=== PATIENT | female | born 1940 | race Caucasian/White ===

== ENCOUNTER 2017-10-22 08:17 | Emergency (ER) | payer MEDICARE ==
[~2017-10-22] VITALS: Ht 152.4 cm; Wt 45.0 kg
[~2017-10-22 08:17] MED LIST: ADVA500A INH; ALBUAER3 INH; ASPI-183 PO; CLOP75TA PO; DIGO0.12 PO; FURO20TA PO; ISOS10TA PO; METO25TA3 PO; NITR1SUB3 SL; OXYGENTANK NAS.CANULA; PRED20 PO; SIMV40TA PO; SPIRCAP INH; XANA1TAB2 PO; [UNRECOGNIZED DRUG - SUPPLY] NAS.CANULA
[2017-10-22 08:24] VITALS: BP 143/63; PULSE 72; RESP 22; TEMP 97.4; O2SAT 100
[2017-10-22] MEDS ORDERED: PANT40TA3 PO (08:40)
[2017-10-22] MEDS ORDERED: SODIUM CHLORIDE 0.9% FLUSH 10 ML FLUSH IVF PRN (09:00)
[2017-10-22 09:13] LABS: AUTOMATED NEUTROPHIL # 5.2 TH/MM3 (1.8-7.7); BASOPHIL # 0.1 TH/MM3 (0-0.2); BASOPHIL % 0.7 % (0.0-2.0); EOSINOPHIL # 0.4 TH/MM3 (0-0.4); HEMATOCRIT 33.2 % (35.0-46.0); HEMOGLOBIN 11.1 GM/DL (11.6-15.3); LYMPH % 24.2 % (9.0-44.0); LYMPHOCYTE # 2.1 TH/MM3 (1.0-4.8); MEAN CELL VOLUME 91.1 FL (80.0-100.0); MEAN CORPUSCULAR HEMOGLOBIN 30.5 PG (27.0-34.0); MEAN CORPUSCULAR HGB CONC 33.5 % (32.0-36.0); MEAN PLATELET VOLUME 7.1 FL (7.0-11.0); MONO % 10.4 % (0.0-8.0); MONOCYTE # 0.9 TH/MM3 (0-0.9); NEUT % 59.7 % (16.0-70.0); PLATELET COUNT 336 TH/MM3 (150-450); RED BLOOD COUNT 3.64 MIL/MM3 (4.00-5.30); RED CELL DISTRIBUTION WIDTH 12.9 % (11.6-17.2); WHITE BLOOD COUNT 8.6 TH/MM3 (4.0-11.0)
[2017-10-22 09:21] LABS: INTERNATIONAL NORMALIZED RATIO 1.1 RATIO
--- NOTE | 2017-10-22 09:25 | RADRPT ---
EXAM DATE/TIME: 10/22/2017 08:57 [facility] COMPARISON: No previous studies available for comparison. INDICATIONS : Chest pain. MEDICAL HISTORY : Chronic obstructive pulmonary disease. SURGICAL HISTORY : Hysterectomy. ENCOUNTER: Initial ACUITY: 1 day PAIN SCORE: 7/10 LOCATION: Bilateral chest FINDINGS: Lungs are hyperexpanded. Linear parenchymal opacities in the right lung apex peripherally. Cardio med iastinal contours are within normal limits. Bony thorax is intact. CONCLUSION: 1. Changes suggestive of obstructive pulmonary disease. 2. Linear parenchymal opacities in the right lung apex may reflect scarring. Lan Hanna MD on October 22, 2017 at 9:20 Board Certified Radiologist. This report was verified electronically.
[2017-10-22 09:27] LABS: ALT (GPT) 14 U/L (10-53)
[2017-10-22 09:31] LABS: ALKALINE PHOSPHATASE 78 U/L (45-117); TOTAL BILIRUBIN ADULT 0.4 MG/DL (0.2-1.0); TOTAL PROTEIN 7.1 GM/DL (6.4-8.2); TROPONIN I LESS THAN 0.02 NG/ML (0.02-0.05)
[2017-10-22 09:42] LABS: AST (GOT) 24 U/L (15-37); BICARBONATE 32.6 MEQ/L (21.0-32.0); BLOOD UREA NITROGEN 16 MG/DL (7-18); CALCIUM 8.3 MG/DL (8.5-10.1); CHLORIDE 103 MEQ/L (98-107); CREATININE 0.92 MG/DL (0.50-1.00); GLOMERULAR FILTRATION RATE 59 ML/MIN (>89); GLUCOSE,RANDOM 90 MG/DL (74-106); MAGNESIUM 2.3 MG/DL (1.5-2.5); SODIUM (NA) 142 MEQ/L (136-145)
[2017-10-22] MEDS ORDERED: IOHEXOL 350 MG/ML 10 ML VIAL (for RAD DIAG) IVCONTRAST ONE (11:37)
--- NOTE | 2017-10-22 12:03 | RADRPT ---
EXAM DATE/TIME: 10/22/2017 11:23 [facility] COMPARISON: No previous studies available for comparison. INDICATIONS : Chest pain, worse with deep breath IV CONTRAST: 70 cc Omnipaque 350 (iohexol) IV RADIATION DOSE: 5.72 CTDIvol (mGy) MEDICAL HISTORY : Cardiovascular disease. Chronic obstructive pulmonary disease. Cerebrovascular disease. SURGICAL HISTORY : Hysterectomy. ENCOUNTER: Initial ACUITY: 1 day PAIN SCALE: 0/10 LOCATION: chest TECHNIQUE: Volumetric scanning of the chest was performed using a pulmonary embolism protocol MIP images were re constructed. Using automated exposure control and adjustment of the mA and/or kV according to patien t size, radiation dose was kept as low as reasonably achievable to obtain optimal diagnostic quality images. DICOM format image data is available electronically for review and comparison. Follow-up recommendations for detected pulmonary nodules are based at a minimum on nodule size and pa tient risk factors according to Fleischner Society Guidelines. FINDINGS: PULMONARY ARTERIES: No filling defects are seen in the pulmonary arteries through the segmental level. LUNGS: Severe chronic lung disease is noted. There is generalized hyperinflation with interstitial thickenin g. Upper lobe pleural-parenchymal scarring is evident. In the left upper lobe there is focal airway disease with peribronchial scarring extending from the right hilum to the pleural surface. Traction bronchiectasis is noted. PLEURAE: Patchy pleural thickening is identified throughout both lungs. MEDIASTINUM: There is good visualization of the great vessels of the middle mediastinum. No evidence of mediastin al or hilar adenopathy/mass. MUSCULOSKELETAL: Within normal limits for patient age. MISCELLANEOUS: The visualized upper abdominal organs demonstrate no acute abnormality. CONCLUSION: 1. No evidence of acute pulmonary embolism 2. Advanced COPD with pleural-parenchymal scarring, interstitial thickening and right upper lobe trac tion bronchiectasis. 3. No evidence of suspicious mass or lymphadenopathy. Venkat Colin MD on October 22, 2017 at 11:58 Board Certified Radiologist. This report was verified electronically.
[2017-10-22 12:53] VITALS: BP 133/60; PULSE 74; RESP 17; O2SAT 100
--- NOTE | 2017-10-22 13:23 | PD ---
HPI Chief Complaint: Chest Pain Time Seen by Provider: 08:30 Travel History International Travel<30 days: No Contact w/Intl Traveler<30days: No Traveled to known affect area: No History of Present Illness HPI Is a 77-year-old woman presents emergency department complaining of some left- sided chest pain is been ongoing for the past day or so. She reports a fall couple days ago. Does not think that she really hurt herself during it. Over the past couple days she developed some left-sided pleuritic chest pain, worse with deep breathing or moving, worse with palpation. She never really had it before. She does see a management tech has a history of heart disease had CT in the past. States this feels different from previous trouble. Is not exertional. Otherwise been feeling well and healthy. A little bit of cough. No other complaints. History Past Medical History Narrative Medical CAD, CT 2004 TIA COPD Menopausal: Yes : 2 Para: 2 Social History Alcohol Use: No Tobacco Use: No Allergies-Medications (Allergen,Severity, Reaction): Coded Allergies: No Known Allergies (Unverified Adverse Reaction, Unknown, 10/22/17) Reported Meds & Prescriptions Reported Meds & Active Scripts Active Clopidogrel (Clopidogrel Bisulfate) 75 Mg Tab 75 Mg PO DAILY Nitroglycerin SL (Nitroglycerin) 0.4 Mg Subl 0.4 Mg SL DIRECTED PRN ONE TABLET UNDER THE TONGUE NEEDED FOR CHEST PAIN, MAY REPEAT EVERY FIVE MINUTES FOR A TOTAL OF 3 DOSES OR CALL 911 IF NO RELIEF Xanax (Alprazolam) 1 Mg Tab 1 Mg PO BID PRN Advair Diskus Inh (Fluticasone-Salmeterol Inh) 500-50 Mcg/Blist Aer 1 Puff INH BID Rinse mouth after use. Proair Hfa 8.5 GM Inh (Albuterol Sulfate) 90 Mcg/Act Aer 1 Puff INH Q4H PRN 108 mcg/actuation Spiriva Handihaler (Tiotropium Inh) 18 Mcg Cap 18 Mcg INH DAILY 1 capsule = 18 mcg Oxygen tank (Oxygen) 1 Ea Tank 2 Liter JOYCE.CANULA CONTINUOUS Oxygen Concentrator Portable Gaseous 2 L/min via Nasal Cannula Continuous For 99 months [port.O2 generator] Units JOYCE.CANULA DAILY Reported Pantoprazole (Pantoprazole Sodium) 40 Mg Tab 40 Mg PO DAILY Metoprolol Tartrate 25 Mg Tab 5 Mg PO BID Furosemide 20 Mg Tab 20 Mg PO BID Aspirin 325 Mg Tab 325 Mg PO EVERY OTHER DAY Digoxin 0.125 Mg Tab 0.0625 Mg PO DAILY Simvastatin 40 Mg Tab 40 Mg PO HS Review of Systems Except as stated in HPI: all other systems reviewed are Neg Physical Exam Narrative GENERAL: Well-appearing 77-year-old woman, no acute distress. SKIN: Focused skin assessment warm/dry. HEAD: Atraumatic. Normocephalic. EYES: Pupils equal and round. No scleral icterus. No injection or drainage. ENT: No nasal bleeding or discharge. Mucous membranes pink and moist. NECK: Trachea midline. No JVD. CARDIOVASCULAR: Regular rate and rhythm. No murmur appreciated. RESPIRATORY: No accessory muscle use. Clear to auscultation. Breath sounds equal bilaterally. GASTROINTESTINAL: Abdomen soft, non-tender, nondistended. Hepatic and splenic margins not palpable. MUSCULOSKELETAL: No obvious deformities. No clubbing. No cyanosis. No edema. NEUROLOGICAL: Awake and alert. No obvious cranial nerve deficits. Motor grossly within normal limits. Normal speech. PSYCHIATRIC: Appropriate mood and affect; insight and judgment normal. Data Data Last Documented VS Vital Signs Date Time Temp Pulse Resp B/P (MAP) Pulse Ox O2 Delivery O2 Flow Rate FiO2 10/22/17 12:53 74 17 133/60 (84) 100 Nasal Cannula 2.00 10/22/17 08:24 97.4 Orders Orders Electrocardiogram (10/22/17 08:54) Complete Blood Count With Diff (10/22/17 08:54) Comprehensive Metabolic Panel (10/22/17 08:54) Magnesium (Mg) (10/22/17 08:54) Prothrombin Time / Inr (Pt) (10/22/17 08:54) Act Partial Throm Time (Ptt) (10/22/17 08:54) Troponin I (10/22/17 08:54) Chest, Single Ap (10/22/17 08:54) Ecg Monitoring (10/22/17 08:54) Iv Access Insert/Monitor (10/22/17 08:54) Oximetry (10/22/17 08:54) Oxygen Administration (10/22/17 08:54) Sodium Chloride 0.9% Flush (Ns Flush) (10/22/17 09:00) D-Dimer (10/22/17 10:09) Ct Pulmonary Angiogram (10/22/17 ) Iohexol 350 Inj (Omnipaque 350 Inj) (10/22/17 11:37) Labs Laboratory Tests Test 10/22/17 08:57 White Blood Count 8.6 TH/MM3 Red Blood Count 3.64 MIL/MM3 Hemoglobin 11.1 GM/DL Hematocrit 33.2 % Mean Corpuscular Volume 91.1 FL Mean Corpuscular Hemoglobin 30.5 PG Mean Corpuscular Hemoglobin Concent 33.5 % Red Cell Distribution Width 12.9 % Platelet Count 336 TH/MM3 Mean Platelet Volume 7.1 FL Neutrophils (%) (Auto) 59.7 % Lymphocytes (%) (Auto) 24.2 % Monocytes (%) (Auto) 10.4 % Eosinophils (%) (Auto) 5.0 % Basophils (%) (Auto) 0.7 % Neutrophils # (Auto) 5.2 TH/MM3 Lymphocytes # (Auto) 2.1 TH/MM3 Monocytes # (Auto) 0.9 TH/MM3 Eosinophils # (Auto) 0.4 TH/MM3 Basophils # (Auto) 0.1 TH/MM3 CBC Comment DIFF FINAL Differential Comment Prothrombin Time 11.0 SEC Prothromb Time International Ratio 1.1 RATIO Activated Partial Thromboplast Time 24.0 SEC D-Dimer Quantitative (PE/DVT) 0.94 MG/L FEU Blood Urea Nitrogen 16 MG/DL Creatinine 0.92 MG/DL Random Glucose 90 MG/DL Total Protein 7.1 GM/DL Albumin 3.0 GM/DL Calcium Level 8.3 MG/DL Magnesium Level 2.3 MG/DL Alkaline Phosphatase 78 U/L Aspartate Amino Transf (AST/SGOT) 24 U/L Alanine Aminotransferase (ALT/SGPT) 14 U/L Total Bilirubin 0.4 MG/DL Sodium Level 142 MEQ/L Potassium Level 4.0 MEQ/L Chloride Level 103 MEQ/L Carbon Dioxide Level 32.6 MEQ/L Anion Gap 6 MEQ/L Estimat Glomerular Filtration Rate 59 ML/MIN Troponin I LESS THAN 0.02 NG/ML MDM Medical Decision Making Medical Screen Exam Complete: Yes Emergency Medical Condition: Yes Interpretation(s) My review of EKG: Normal sinus rhythm at a rate of 70, some nonspecific inferior lateral ST changes, inferior T-wave inversions, no change from previous. LABS: CBC is unremarkable mild anemia CMP is unremarkable and troponin negative Coags unremarkable D-dimer 0.94 Chest x-ray: COPD changes, likely scarring. Nothing acute. CT pulmonary angiogram: Negative for PE. Advanced COPD changes. Differential Diagnosis ACS, chest wall pain, zoster, pleurisy, PE, dissection, other Narrative Course Medical decision making Is a 77-year-old woman presents emerged from quitting of chest pain. She looks well. History is minimally suggestive of ACS. Strong history however. Patient 's heart score is 4 for age, EKG changes, risk factors. Discussed with the patient and the patient's family, risk of ACS about 15% of major adverse cardiac events. Patient has a management tech, she would like to follow-up with him as an outpatient. She agrees to return if there is any worsening symptoms. I think this is reasonable. This is likely chest wall pain or zoster. Recommend outpatient follow-up. Diagnosis Primary Impression: Chest pain Additional Instructions: Follow-up with your management tech this week. Follow with her primary physician this week. Return to the emergency department for any worsening chest pain, or any other new or worsening symptoms. Continue current medications. Disposition: 01 DISCHARGE HOME Condition: Stable Venkata Stoner MD October 22, 2017 13:23
--- NOTE | 2017-10-22 22:13 | EKG ---
Date Performed: 10/22/2017 Time Performed: 08:26:39 PTAGE: 77 years EKG: Sinus rhythm NONSPECIFIC ST & T-WAVE ABNORMALITY ABNORMAL ECG PREVIOUS TRACING : 07/24/2014 16.45 Since the previous tracing, no significant change noted DOCTOR: Jeremy García Interpretating Date/Time 10/22/2017 22:13:07
== END 2017-10-22 14:02 | disposition home or self-care (01) ==
LOC: NEPE 08:17
DX: R07.9 Chest pain, unspecified (principal); R94.31 Abnormal electrocardiogram [ECG] [EKG]; I25.10 Atherosclerotic heart disease of native coronary artery without angina pectoris; I25.2 Old myocardial infarction; J44.9 Chronic obstructive pulmonary disease, unspecified; Z86.73 Personal history of transient ischemic attack (TIA), and cerebral infarction without residual deficits; Z79.899 Other long term (current) drug therapy
CPT/HCPCS: 71045; 71275; 80053; 83735; 84484; 85025; 85379; 85610; 85730; 93005; 99285; Q9967